=== PATIENT | female | born 1985 | race American Indian/Alaskan Native ===

== ENCOUNTER 2021-08-19 11:07 | Emergency (ER) | payer SELFPAY ==
[2021-08-19] MEDS ORDERED: SODIUM CHLORIDE 0.9% 1000 ML 1,000 ML IV ONE (11:51)
[2021-08-19 13:30] LABS: Basophils % (Auto) 0.8 % (0.0-1.8); Eosinophils # (Auto) 0.1 K/mm3 (0.0-0.4); Eosinophils % (Auto) 1.3 % (0.0-4.3); Hematocrit 33.1 % (30.3-42.9); Hemoglobin 10.8 gm/dl (10.1-14.3); Lymphocytes % (Auto) 35.1 % (13.4-35.0); Mean Corpuscular HGB Conc 33 % (30-34); Mean Corpuscular Volume 86 fl (79-97); Monocytes # (Auto) 0.3 K/mm3 (0.0-0.8); Monocytes % (Auto) 5.6 % (0.0-7.3); Platelet Count 259 K/mm3 (140-440); Red Blood Count 3.87 M/mm3 (3.65-5.03); Red Cell Distribution Width 14.5 % (13.2-15.2)
[2021-08-19 13:40] LABS: Alanine Aminotransferase 7 units/L (7-56); Albumin 3.6 g/dL (3.9-5); Blood Urea Nitrogen 8 mg/dL (7-17); Calcium 8.4 mg/dL (8.4-10.2); Hemolysis Index 3
[2021-08-19 13:44] LABS: BUN/Creatinine Ratio 16; Bilirubin,Direct < 0.2 mg/dL (0-0.2)
--- NOTE | 2021-08-19 13:56 | Ultrasound Report ---
ULTRASOUND OBSTETRIC REASON FOR EXAM: pain TECHNIQUE: Transabdominal and transvaginal ultrasound was performed to evaluate a first trimester pre gnancy. COMPARISON: None available. FINDINGS: FINDINGS: The pole, yolk sac, and gestational sac are normal in appearance. [place]-rump length: 6.4 mm. This corresponds with a gestational age of 6 weeks 3 days. heart rate: 106 bpm Perigestational hemorrhage: No evidence of perigestational hemorrhage on the provided images. MATERNAL FINDINGS: The uterus demonstrates an otherwise unremarkable sonographic appearance. The right ovary is not visualized. The left ovary is not visualize. Cul-de-sac: There is no free fluid. IMPRESSION: Viable intrauterine . Gestational age is 6 weeks 3 days by ultrasound. Recommend clinical sc reening and ultrasound follow-up in the second trimester to screen for anomalies. Borderline bradycardia, measuring 106 bpm. Continued follow-up is recommended. Signer Name: Delano Arce MD Signed: 08/19/2021 1:52 PM Workstation Name: [email or web address]
--- NOTE | 2021-08-19 14:20 | Emergency Department Report ---
ED Abdominal Pain HPI - General Chief Complaint: Abdominal Pain Stated Complaint: 6 WEEKS /ABD PAIN/SOB Time Seen by Provider: 08/19/21 11:48 Source: patient Mode of arrival: Ambulatory Limitations: No Limitations - History of Present Illness MD Complaint: abdominal pain -: Gradual, week(s) Location: suprapubic Radiation: none Severity scale (0 -10): 0 Quality: cramping Consistency: intermittent Improves With: nothing - Related Data Home Medications Medication Instructions Recorded Confirmed Last Taken No Known Home Medications [No 08/19/21 08/19/21 Unknown Reported Home Medications] Allergies Allergy/AdvReac Type Severity Reaction Status Date / Time No Known Allergies Allergy Verified 08/19/21 13:04 ED Review of Systems ROS: Stated complaint: 6 WEEKS /ABD PAIN/SOB Other details as noted in HPI Constitutional: denies: chills, fever Eyes: denies: eye pain, eye discharge, vision change ENT: denies: ear pain, throat pain Respiratory: denies: cough, shortness of breath, wheezing Cardiovascular: denies: chest pain, palpitations Endocrine: no symptoms reported Gastrointestinal: denies: abdominal pain, nausea, diarrhea Genitourinary: denies: urgency, dysuria, discharge Musculoskeletal: denies: back pain, joint swelling, arthralgia Skin: denies: rash, lesions Neurological: denies: headache, weakness, paresthesias Psychiatric: denies: anxiety, depression Hematological/Lymphatic: denies: easy bleeding, easy bruising ED Past Medical Hx - Past Medical History Previous Medical History?: Yes Additional medical history: - Surgical History Past Surgical History?: No - Medications Home Medications: Home Medications Medication Instructions Recorded Confirmed Last Taken Type No Known Home Medications [No 08/19/21 08/19/21 Unknown History Reported Home Medications] ED Physical Exam - General Limitations: No Limitations General appearance: alert, in no apparent distress - Head Head exam: Present: atraumatic, normocephalic - Eye Eye exam: Present: normal appearance - ENT ENT exam: Present: mucous membranes moist - Neck Neck exam: Present: normal inspection - Respiratory Respiratory exam: Present: normal lung sounds bilaterally. Absent: respiratory distress - Cardiovascular Cardiovascular Exam: Present: regular rate, normal rhythm. Absent: systolic murmur, diastolic murmur, rubs, gallop - GI/Abdominal GI/Abdominal exam: Present: soft, normal bowel sounds - Extremities Exam Extremities exam: Present: normal inspection - Back Exam Back exam: Present: normal inspection - Neurological Exam Neurological exam: Present: alert, oriented X3 - Psychiatric Psychiatric exam: Present: normal affect, normal mood - Skin Skin exam: Present: warm, dry, intact, normal color. Absent: rash ED Course Vital Signs 08/19/21 08/19/21 11:38 13:03 Temperature 98.6 F 98.2 F Pulse Rate 77 70 Respiratory 20 16 Rate Blood Pressure 117/70 129/56 [Right] O2 Sat by Pulse 99 99 Oximetry - Reevaluation(s) Reevaluation #1: 08/19/21 14:18 work up neg , vss, US showed 6 weeks 3 days IUP some bradycardia pt informed will follow up with OB ED Medical Decision Making - Lab Data Result diagrams: 08/19/21 12:42 08/19/21 12:42 Critical care attestation.: If time is entered above; I have spent that time in minutes in the direct care of this critically ill patient, excluding procedure time. ED Disposition Clinical Impression: Abdominal pain during intrauterine Disposition: HOME / SELF CARE / HOMELESS Is pt being admited?: No Does the pt Need Aspirin: No Condition: Stable Instructions: Abdominal Pain (ED), Round Ligament Pain, Abdominal Pain During , [id number] Referrals: PRIMARY CARE, [Primary Care Provider] - 3-5 Days
[2021-08-19 14:45] VITALS: BP 109/67
== END 2021-08-19 14:45 | disposition home or self-care (01) ==
LOC: ED 11:07
DX: O26.891 Other specified pregnancy related conditions, first trimester (principal); R10.30 Lower abdominal pain, unspecified; Z3A.01 Less than 8 weeks gestation of pregnancy; Z79.899 Other long term (current) drug therapy
CPT/HCPCS: 36415; 76801; 80048; 80076; 82150; 83690; 84702; 85025; 96360; 96361; 99284; J7030; Q0162

== ENCOUNTER 2021-09-10 07:21 | Emergency (ER) | payer MEDICAID ==
[2021-09-10] MEDS ORDERED: METOCLOPRAMIDE 10 MG/2 ML INJ IV ONE (07:51)
[2021-09-10] MEDS ORDERED: diphenhydrAMINE 50 MG/ML VIAL IV ONE (07:51)
[2021-09-10] MEDS ORDERED: LACTATED RINGERS 1,000 ML IV ONE ×2 (07:51→07:52)
--- NOTE | 2021-09-10 07:58 | Emergency Department Report ---
ED General Adult HPI - General Chief complaint: Nausea/Vomiting/Diarrhea Stated complaint: DIZZINESS/WEAKNESS Time Seen by Provider: 09/10/21 07:29 Source: patient Mode of arrival: Ambulatory Limitations: No Limitations - History of Present Illness Initial comments: 36-year-old -[place] female patient presents with complaints of nausea and vomiting in x2 weeks. Patient states she is approximately 10 weeks and is G5, . She is following with [facility]. She denies any hematemesis/coffee-ground emesis, diarrhea/hematochezia, dysuria/hematuria/urinary frequency, dyspareunia, or vaginal discharge/bleeding. Patient does admit to intermittent left lower pelvic pain. No other past medical history or known drug allergies per patient. Severity scale (0 -10): 7 - Related Data Previous Rx's Medication Instructions Recorded Last Taken Type Promethazine [Phenergan SUPPOS] 25 mg UT Q6HR PRN #20 supp.rect 09/10/21 Unknown Rx Allergies Allergy/AdvReac Type Severity Reaction Status Date / Time No Known Allergies Allergy Verified 08/19/21 13:04 ED Review of Systems ROS: Stated complaint: DIZZINESS/WEAKNESS Other details as noted in HPI Constitutional: denies: chills, fever, malaise Respiratory: denies: cough, shortness of breath Cardiovascular: denies: chest pain Gastrointestinal: as per HPI, abdominal pain, nausea, vomiting Genitourinary: as per HPI Musculoskeletal: denies: back pain Neurological: denies: headache Hematological/Lymphatic: denies: easy bleeding, swollen glands ED Past Medical Hx - Past Medical History Previous Medical History?: No Additional medical history: - Surgical History Past Surgical History?: No - Medications Home Medications: Home Medications Medication Instructions Recorded Confirmed Last Taken Type Promethazine [Phenergan SUPPOS] 25 mg UT Q6HR PRN #20 supp.rect 09/10/21 Unknown Rx ED Physical Exam - General Limitations: No Limitations General appearance: alert, in no apparent distress, obese - Head Head exam: Present: atraumatic, normocephalic - Eye Eye exam: Present: normal appearance - ENT ENT exam: Present: normal exam - Respiratory Respiratory exam: Present: normal lung sounds bilaterally. Absent: respiratory distress - Cardiovascular Cardiovascular Exam: Present: regular rate, normal rhythm - Back Exam Back exam: Present: full ROM - Neurological Exam Neurological exam: Present: alert, oriented X3, normal gait - Psychiatric Psychiatric exam: Present: normal affect, normal mood - Skin Skin exam: Present: warm, dry, intact, normal color. Absent: rash ED Course Vital Signs 09/10/21 07:22 Temperature 98.5 F Pulse Rate 85 Respiratory 18 Rate Blood Pressure 100/60 [Right] O2 Sat by Pulse 100 Oximetry ED Medical Decision Making - Lab Data Result diagrams: 09/10/21 07:55 09/10/21 07:55 - Radiology Data Radiology results: report reviewed Accession Number(s): [id number] cc: SMITH BEJARANO ULTRASOUND OBSTETRIC INDICATION / CLINICAL INFORMATION: left pain. Pelvic pain and cramping during . - Clinical Gestational Age (GA) in weeks, days: 6, 4 TECHNIQUE: Transabdominal. COMPARISON: Ultrasound dated 08/19/21 FINDINGS: GESTATIONAL SAC: Well-defined oval shape and intrauterine in location. YOLK SAC: No significant abnormality. EMBRYO/FETUS: No significant abnormality. - [place]-Rump Length = 2.6 cm = 9, 3 weeks, days - Heart Rate, beats per minute (if present) = 163 ADNEXA: Neither ovary was definitely visualized but no adnexal mass or cyst. FREE FLUID: None. ADDITIONAL FINDINGS: None. IMPRESSION: 1. Single, living intrauterine with estimated sonographic age of 9, 3 weeks, days. - Medical Decision Making 36-year-old -[place] female patient presents with complaints of nausea and vomiting in x2 weeks. Patient states she is approximately 10 weeks and is G5, . She is following with [facility]. She denies any hematemesis/coffee-ground emesis, diarrhea/hematochezia, dysuria/hematuria/urinary frequency, dyspareunia, or vaginal discharge/bleeding. Patient does admit to intermittent left lower pelvic pain. No other past m edical history or known drug allergies per patient. Ultrasound shows 9-week 3-day IUP. Beta-hCG in the 9000s. Critical care attestation.: If time is entered above; I have spent that time in minutes in the direct care of this critically ill patient, excluding procedure time. ED Disposition Clinical Impression: Vomiting Disposition: HOME / SELF CARE / HOMELESS Is pt being admited?: No Condition: Stable Instructions: Hyperemesis Gravidarum Additional Instructions: Please follow-up with your [facility] within 1 to 2 weeks Prescriptions: Promethazine [Phenergan SUPPOS] 25 mg UT Q6HR PRN #20 supp.rect PRN Reason: Nausea Forms: Work/School Release Form(ED)
--- NOTE | 2021-09-10 08:45 | Ultrasound Report ---
ULTRASOUND OBSTETRIC INDICATION / CLINICAL INFORMATION: left pain. Pelvic pain and cramping during . - Clinical Gestational Age (GA) in weeks, days: 6, 4 TECHNIQUE: Transabdominal. COMPARISON: Ultrasound dated 08/19/21 FINDINGS: GESTATIONAL SAC: Well-defined oval shape and intrauterine in location. YOLK SAC: No significant abnormality. EMBRYO/FETUS: No significant abnormality. - [place]-Rump Length = 2.6 cm = 9, 3 weeks, days - Heart Rate, beats per minute (if present) = 163 ADNEXA: Neither ovary was definitely visualized but no adnexal mass or cyst. FREE FLUID: None. ADDITIONAL FINDINGS: None. IMPRESSION: 1. Single, living intrauterine with estimated sonographic age of 9, 3 weeks, days. Signer Name: Ramsey Washington MD Signed: 09/10/2021 8:41 AM Workstation Name: [id number]
[2021-09-10 08:52] LABS: Basophils % (Auto) 0.6 % (0.0-1.8); Eosinophils % (Auto) 0.5 % (0.0-4.3); Hematocrit 33.5 % (30.3-42.9); Hemoglobin 11.1 gm/dl (10.1-14.3); Lymphocytes # (Auto) 1.8 K/mm3 (1.2-5.4); Lymphocytes % (Auto) 29.6 % (13.4-35.0); Mean Corpuscular HGB Conc 33 % (30-34); Mean Corpuscular Volume 84 fl (79-97); Monocytes # (Auto) 0.3 K/mm3 (0.0-0.8); Monocytes % (Auto) 4.4 % (0.0-7.3); Platelet Count 280 K/mm3 (140-440); Red Blood Count 3.97 M/mm3 (3.65-5.03); Red Cell Distribution Width 14.9 % (13.2-15.2)
[2021-09-10 09:12] LABS: Alanine Aminotransferase 7 units/L (7-56); Albumin 3.8 g/dL (3.9-5); Blood Urea Nitrogen 7 mg/dL (7-17); Calcium 9.1 mg/dL (8.4-10.2); Hemolysis Index 8
[2021-09-10 09:29] LABS: BUN/Creatinine Ratio 12
[2021-09-10 09:58] LABS: Bilirubin,Urine NEG (Negative); Blood,Urine NEG (Negative); Color,Urine Yellow (Yellow); Protein,Urine <15 mg/dL mg/dL (Negative); Urobilinogen,Urine < 2.0 mg/dL (<2.0)
[2021-09-10] MEDS ORDERED: SODIUM CHLORIDE 0.9% 1000 ML 1,000 ML IV ONE (10:03)
[2021-09-10 11:49] VITALS: BP 94/61
== END 2021-09-10 11:50 | disposition home or self-care (01) ==
LOC: ED 07:21
DX: O21.9 Vomiting of pregnancy, unspecified (principal); Z3A.10 10 weeks gestation of pregnancy
CPT/HCPCS: 36415; 76801; 80053; 81001; 84702; 85025; 96361; 96374; 96375; 99284; J1200; J2765; J7120

== ENCOUNTER 2022-01-28 10:42 | Outpatient (CLI) | payer MEDICAID ==
[2022-01-28] MEDS ORDERED: LACTATED RINGERS 1,000 ML IV ONE ×2 (11:46→13:07)
[2022-01-28 15:05] LABS: Basophils % (Auto) 0.4 % (0.0-1.8); Eosinophils % (Auto) 0.4 % (0.0-4.3); Hematocrit 26.1 % (30.3-42.9); Hemoglobin 8.6 gm/dl (10.1-14.3); Lymphocytes # (Auto) 1.5 K/mm3 (1.2-5.4); Lymphocytes % (Auto) 19.4 % (13.4-35.0); Mean Corpuscular HGB Conc 33 % (30-34); Mean Corpuscular Volume 84 fl (79-97); Monocytes # (Auto) 0.4 K/mm3 (0.0-0.8); Monocytes % (Auto) 4.5 % (0.0-7.3); Platelet Count 260 K/mm3 (140-440); Red Blood Count 3.13 M/mm3 (3.65-5.03); Red Cell Distribution Width 14.7 % (13.2-15.2)
[2022-01-28 16:11] VITALS: BP 101/66
== END 2022-01-28 16:16 | disposition home or self-care (01) ==
LOC: TRG 10:42 → LD 10:44 → TRG 16:16
PROVIDERS: ATTEND Obstetrics & Gynecology
DX: O26.893 Other specified pregnancy related conditions, third trimester (principal); M54.50 Low back pain, unspecified; R42 Dizziness and giddiness; R10.2 Pelvic and perineal pain; Z3A.30 30 weeks gestation of pregnancy
CPT/HCPCS: 36415; 85025; 96360; J7120

== ENCOUNTER 2022-03-12 16:31 | Outpatient (CLI) | payer MEDICAID ==
[2022-03-12] MEDS ORDERED: LACTATED RINGERS 1,000 ML IV ONE (18:45)
[2022-03-12 18:50] LABS: Creatinine,Urine 306.7 mg/dL (0.1-20.0); Protein/Creatinine Ratio,Urine 0.22
[2022-03-12 18:59] LABS: Bacteria,Urine 2+ /HPF (Negative); Mucus,Urine 2+ /HPF
[2022-03-12 19:07] LABS: Hematocrit 29.6 % (30.3-42.9); Hemoglobin 9.4 gm/dl (10.1-14.3); Mean Corpuscular HGB Conc 32 % (30-34); Mean Corpuscular Volume 81 fl (79-97); Platelet Count 270 K/mm3 (140-440); Red Blood Count 3.67 M/mm3 (3.65-5.03); Red Cell Distribution Width 16.5 % (13.2-15.2)
[2022-03-12 19:27] LABS: Bilirubin,Urine Negative (Negative); Blood,Urine Negative (Negative); Color,Urine Yellow (Yellow); Urobilinogen,Urine < 2.0 mg/dL (<2.0)
[2022-03-12 19:55] LABS: Alanine Aminotransferase 7 units/L (7-56); Uric Acid 4.5 mg/dL (3.5-7.6)
[2022-03-12] MEDS ORDERED: D5W/0.9% NACL 1,000 ML IV SCH (22:00)
[2022-03-12 23:37] VITALS: BP 105/67
--- NOTE | 2022-03-13 00:09 | Ultrasound Report ---
ULTRASOUND OBSTETRIC LIMITED INDICATION / CLINICAL INFORMATION: EFW, LIZ. Clinical Gestational Age (GA) in weeks, days: 36 weeks 0 days TECHNIQUE: Transabdominal. COMPARISON: None available. FINDINGS: Single live intrauterine in cephalic presentation with heart rate of 131 bpm. MEASUREMENTS: - Biparietal Diameter = 8.2 cm = 33 weeks 1 day - Head Circumference = 31.4 cm = 35 weeks 1 day - Abdominal Circumference = 28.8 cm = 32 weeks 5 days - Femur Length = 7.4 cm = 37 weeks 4 days - Estimated Weight (in grams, if calculated): 2440 Ultrasound gestational age: 34 weeks 5 days. Amniotic fluid index measures 12.5 cm, within normal limits. IMPRESSION: 1. Single live intrauterine with ultrasound age of 34 weeks and 5 days. No significant abno rmality. 2. Estimated weight of 2440 g. 3. Amniotic fluid index is within normal limits, measuring 12.5 cm. Signer Name: Delano Arce MD Signed: 03/13/2022 12:05 AM Workstation Name: [id number]
== END 2022-03-13 00:08 | disposition home or self-care (01) ==
LOC: TRG 16:31 → APU 16:33 → TRG 03-13 00:08
PROVIDERS: ATTEND Obstetrics & Gynecology
DX: O26.893 Other specified pregnancy related conditions, third trimester (principal); R51.9 Headache, unspecified; H53.8 Other visual disturbances; R42 Dizziness and giddiness; Z3A.35 35 weeks gestation of pregnancy
CPT/HCPCS: 36415; 76816; 81001; 82565; 82570; 82962; 83615; 84156; 84450; 84460; 84550; 85027; 96360; 96361; J7042; J3490

== ENCOUNTER 2022-04-05 11:10 | Inpatient (IN) | payer MEDICAID ==
[2022-04-05] MEDS ORDERED: OXYTOCIN 10 UNIT/1 ML INJ IM PRN (12:44)
[2022-04-05] MEDS ORDERED: TERBUTALINE 1 MG/1 ML INJ SUB-Q PRN (12:44)
[2022-04-05] MEDS ORDERED: ePHEDrine SULFATE 50 MG/1 ML INJ IV PRN (12:44)
[2022-04-05] MEDS ORDERED: LOPERAMIDE 2 MG CAP PO PRN (12:44)
[2022-04-05] MEDS ORDERED: miSOPROStol 200 MCG TAB PR PRN (12:44)
[2022-04-05] MEDS ORDERED: ONDANSETRON 4 MG/2 ML INJ IV PRN ×3 (12:44→16:39)
[2022-04-05] MEDS ORDERED: LIDOCAINE (2%) 20 MG/1 ML VIAL 20 ML MDV INFILTRATI ONE (12:44)
[2022-04-05] MEDS ORDERED: BUTORPHANOL 2 MG/1 ML INJ IV PRN (12:44)
[2022-04-05] MEDS ORDERED: fentaNYL 100 MCG/2 ML INJ IV PRN (12:44)
[2022-04-05] MEDS ORDERED: MINERAL OIL 30 ML ORAL LIQD PO PRN (12:44)
[2022-04-05] MEDS ORDERED: ACETAMINOPHEN 325 MG TAB PO PRN ×2 (12:44→16:17)
[2022-04-05] MEDS ORDERED: METHYLERGONOVINE MALEATE 0.2 MG/ML VIAL IM PRN (12:44)
[2022-04-05] MEDS ORDERED: CARBOPROST TROMETHAMINE 250 MCG/1 ML INJ IM PRN (12:44)
[2022-04-05] MEDS ORDERED: LACTATED RINGERS 1,000 ML IV SCH ×3 (12:45→19:45)
[2022-04-05] MEDS ORDERED: FAMOTIDINE 20 MG/2 ML INJ IV ONE (12:55)
[2022-04-05] MEDS ORDERED: METOCLOPRAMIDE 10 MG/2 ML INJ IV ONE (12:55)
[2022-04-05] MEDS ORDERED: BICITRA ORAL LIQD 30ML PO ONE (12:55)
[2022-04-05] MEDS ORDERED: OXYTOCIN DRIP 30 UNITS/500 ML BAG IV SCH ×3 (13:00→17:00)
[2022-04-05] MEDS ORDERED: ceFAZolin/Water 2 GM/20 ML 2 GM/20 ML SYRINGE IV NR (13:00)
[2022-04-05 13:30] LABS: Hematocrit 30.6 % (30.3-42.9); Hemoglobin 9.8 gm/dl (10.1-14.3); Mean Corpuscular HGB Conc 32 % (30-34); Mean Corpuscular Volume 79 fl (79-97); Platelet Count 341 K/mm3 (140-440); Red Blood Count 3.89 M/mm3 (3.65-5.03); Red Cell Distribution Width 16.4 % (13.2-15.2)
[2022-04-05] MEDS ORDERED: BUPIVACAINE/PF (0.5%) 5 MG/1 ML 30 ML VIAL INFILTRATI ONE (13:59)
[2022-04-05] MEDS ORDERED: ePHEDrine SULFATE 50 MG/1 ML INJ ONE (13:59)
[2022-04-05] MEDS ORDERED: ONDANSETRON 4 MG/2 ML INJ ONE (13:59)
--- NOTE | 2022-04-05 14:00 | History and Physical Report ---
History of Present Illness Date of examination: 04/05/22 Date of admission: 04/05/22 12:45 Chief complaint: Non reassuring heart tracing at 39+1 wks. History of present illness: 39+1 wks. by cesareans. Past History Past Medical History: no pertinent history Past Surgical History: no surgical history, section - Obstetrical History Expected Date of Delivery: 04/10/22 Actual Gestation: 39 Week(s) 2 Day(s) : 5 Para: 2 Medications and Allergies Allergies Allergy/AdvReac Type Severity Reaction Status Date / Time diphenhydramine AdvReac Severe Anaphylaxis Verified 03/12/22 17:38 [From Benadryl] Home Medications Medication Instructions Recorded Confirmed Last Taken Type Promethazine [Phenergan SUPPOS] 25 mg MN Q6HR PRN #20 supp.rect 09/10/21 01/28/22 Unknown Rx Active Meds: Active Medications Acetaminophen (Acetaminophen 325 Mg Tab) 650 mg PO Q4H PRN PRN Reason: Pain, Mild (1-3) Butorphanol Tartrate (Butorphanol 2 Mg/1 Ml Inj) 1 mg IV Q2H PRN PRN Reason: Pain, Moderate(4-6) LABOR PAIN Carboprost Tromethamine (Carboprost Tromethamine 250 Mcg/1 Ml Inj) 250 mcg IM ONCE PRN PRN Reason: Uterine Bleeding Ephedrine Sulfate (Ephedrine Sulfate 50 Mg/1 Ml Inj) 10 mg IV Q2M PRN PRN Reason: Hypotension Fentanyl (Fentanyl 100 Mcg/2 Ml Inj) 100 mcg IV Q2H PRN PRN Reason: Pain,Severe (7-10) LABOR PAIN Lactated Ringer's (Lactated Ringers) 1,000 mls @ 125 mls/hr IV DIRECT MARBELLA Oxytocin/Sodium Chloride (Pitocin/Ns 30 Unit/500ml) 30 units in 500 mls @ 40 mls/hr IV TITR MARBELLA; Protocol Lactated Ringer's (Lactated Ringers) 1,000 mls @ 2,250 mls/hr IV PREOP MARBELLA Stop: 04/06/22 13:27 Oxytocin/Sodium Chloride (Pitocin/Ns 30 Unit/500ml) 30 units in 500 mls @ 0 mls/hr IV TITR MARBELLA; Protocol Cefazolin Sodium (Ancef/Sterile Water 2 Gm/20 Ml) 2 gm in 20 mls @ 80 mls/hr IV PREOP NR; Protocol Stop: 04/05/22 23:59 Loperamide HCl (Loperamide 2 Mg Cap) 2 mg PO ONCE PRN PRN Reason: give with Hemabate Methylergonovine Maleate (Methylergonovine Maleate 0.2 Mg/Ml Vial) 0.2 mg IM ONCE PRN PRN Reason: Uterine Bleeding Mineral Oil (Mineral Oil 30 Ml Oral Liqd) 30 ml PO QHS PRN PRN Reason: Constipation Misoprostol (Misoprostol 200 Mcg Tab) 800 mcg MN ONCE PRN PRN Reason: Uterine Bleeding Ondansetron HCl (Ondansetron 4 Mg/2 Ml Inj) 4 mg IV Q8H PRN PRN Reason: Nausea And Vomiting Oxytocin (Oxytocin 10 Unit/1 Ml Inj) 10 unit IM ONCE PRN PRN Reason: Uterine Bleeding Terbutaline Sulfate (Terbutaline 1 Mg/1 Ml Inj) 0.25 mg SUB-Q ONCE PRN PRN Reason: Hyperstimulation/Hypertonicity - Vital Signs Vital signs: Vital Signs Pulse Pulse Ox 124 H 99 04/05/22 11:34 04/05/22 11:34 Temp Pulse Resp BP Pulse Ox 82 123/72 98 04/05/22 13:53 04/05/22 11:35 04/05/22 13:53 - Physical Exam Lungs: Positive: Normal air movement Abdomen: Positive: normal appearance, distention, normal bowel sounds Uterus: Positive: enlarged, normal contour - Obstetrical FHR: auscultation normal, category 2 Results Result Diagrams: 04/05/22 13:04 Abnormal lab results 04/05/22 Range/Units 13:04 Hgb 9.8 L (10.1-14.3) gm/dl MCH 25 L (28-32) pg RDW 16.4 H (13.2-15.2) % All other labs normal. Assessment and Plan - Patient Problems (1) Non-reassuring cardiotocographic tracing Current Visit: Yes Status: Acute (2) 39 weeks gestation of Current Visit: Yes Status: Acute (3) Previous delivery affecting Current Visit: Yes Status: Acute Plan to address problem: for repeat c/s katheryn.
[2022-04-05] MEDS ORDERED: PHENYLEPHRINE/NS 1,000 MCG/10 ML SYRINGE (OR USE) IV ONE (15:43)
[2022-04-05] MEDS ORDERED: KETOROLAC 30 MG/1 ML INJ IV PRN (16:17)
[2022-04-05] MEDS ORDERED: PROMETHAZINE 25 MG RECT SUPP PR PRN ×2 (16:17→16:39)
[2022-04-05] MEDS ORDERED: IBUPROFEN 600 MG TAB PO PRN (16:17)
[2022-04-05] MEDS ORDERED: MORPHINE 4 MG/1 ML INJ IV PRN ×2 (16:17→16:39)
[2022-04-05] MEDS ORDERED: WITCH HAZEL/ GLYCERIN PAD TP PRN (16:17)
[2022-04-05] MEDS ORDERED: MORPHINE 2 MG/1 ML INJ IV PRN (16:17)
[2022-04-05] MEDS ORDERED: NALOXONE 0.4 MG/1 ML INJ IV PRN ×2 (16:17→16:39)
[2022-04-05] MEDS ORDERED: HYDROcodone/ACETAMINOPHEN 5-325 MG TAB PO PRN (16:17)
[2022-04-05] MEDS ORDERED: SIMETHICONE 80 MG CHEW TAB PO PRN (16:17)
[2022-04-05] MEDS ORDERED: SENNOSIDES 8.6 MG TAB PO PRN (16:17)
[2022-04-05] MEDS ORDERED: LANOLIN/ZINC/DIMETHICONE (LANSINOH) 7 GM TP PRN (16:17)
[2022-04-05] MEDS ORDERED: MAGNESIUM HYDROXIDE (MOM) ORAL LIQD UDC PO PRN (16:17)
--- NOTE | 2022-04-05 16:27 | Operative Report ---
Operative Report Operative Report: Date of surgery: April 05, 2022 Preoperative diagnoses: 39 weeks 2 days gestation, 2 previous C-sections, nonreassuring heart tracing Postoperative diagnoses: The same. Plus peritoneal adhesions Operation: Lower segment transverse delivery, lysis of adhesion Surgeon:Paco Ibarra MD Slubber Frame Changer: Donta Cuevas CRNA Anesthesia: Spinal block Estimated blood loss: 200 mL Complications: None Findings: Live baby girl, vertex, Apgars 8/9. The ovaries, fallopian tubes and the uterus were all grossly normal. The inferior aspect of the greater omentum was adherent to the midline just inferior to the umbilicus. Procedure in detail: The patient was taken to the operating room and given a spinal block. Patient was placed in the straight supine position and a Shah catheter was inserted. The patient was prepped in the abdomen. The drapes were placed. A timeout was done. With the go ahead from the heavy equipment field mechanic, a Pfannenstiel incision was made. This incision was carried across the subcutaneous layer to the fascia which was also divided transversely. The recti abdominis muscle flaps were stripped from the fascia using a combination of blunt and sharp dissections. The muscles were in the midline to gain access to the anterior parietal peritoneum which was divided after excluding any underlying viscera. The access to the peritoneal cavity was then widened by manual stretching. The bladder blade was applied. The utero vesicle peritoneal flap was divided transversely allowing the bladder to be displaced caudally. The uterine incision was placed in the lower segment transversely. The uterine incision was carried to the decidual layer. The uterine incision was extended on both sides using the bandage scissors. The amniotic sac was ruptured with clear fluid. The head was lifted out of the false maternal pelvis and delivered through the incision using fundal pressure combined with traction using the Kiwi. The airways were bulb suctioned beginning with the mouth. Continuing fundal pressure combined with traction on the mandibular processes of the jaw delivered the rest of the baby. The umbilical cord was double clamped and divided. The baby was carefully transferred to the pediatric team. The placenta was manually removed from the uterine cavity. The uterine cavity was explored and was empty of any placental remnants. The uterine incision was repaired in 2 layers with #1 Vicryl. The surgical line on the uterus was hemos tatic. The band of omentum was divided in between 2 pairs of Kellys and tied off with #1 Vicryl. Hemostasis was excellent Blood and clots were cleared from the peritoneal cavity. The anterior parietal peritoneum was repaired with #1 Vicryl. The fascia was repaired with #1 Vicryl. The subcutaneous layer was made hemostatic using the Bovie before the skin was closed subcuticularly with 4-0 Vicryl. There were no complications. The estimated blood loss was 200 mL. All sponges and instrument counts were correct. Patient was safely transferred to the recovery room.
[2022-04-05] MEDS ORDERED: PROMETHAZINE 25 MG TAB PO PRN (16:39)
[2022-04-05] MEDS ORDERED: HYDROmorphone 1 MG/1 ML INJ IV PRN ×2 (16:39)
--- NOTE | 2022-04-05 16:41 | Anesthesia Day of Surgery ---
Anesthesia Day of Surgery - Day of Surgery Patient Examined: Yes Patient H&P Reviewed: Yes Patient is NPO: Yes Beta Blockers: No Cardiac Clearance: No Pulmonary Clearance: No Quincy's Test: N/A
--- NOTE | 2022-04-05 16:41 | Anesthesia Consultation ---
Anesthesia Consult and Med Hx Date of service: 04/05/22 - Airway Anesthetic Teeth Evaluation: Good ROM Head & Neck: Adequate Mental/Hyoid Distance: Adequate Mallampati Class: Class II Intubation Access Assessment: Probably Good - Pulmonary Exam CTA: Yes - Cardiac Exam Cardiac Exam: RRR - Pre-Operative Health Status ASA Pre-Surgery Classification: ASA2 Proposed Anesthetic Plan: Spinal Nerve Block: Valdo Tap - Pulmonary Hx Smoking: No Hx Asthma: No Hx Respiratory Symptoms: No SOB: No COPD: No Home Oxygen Therapy: No Hx Pneumonia: No Hx Sleep Apnea: No - Cardiovascular System Hx Hypertension: No Hx Coronary Artery Disease: No Hx Heart Attack/AMI: No Hx Angina: No Hx Percutaneous Transluminal Coronary Angioplasty (PTCA): No Hx Cardia Arrhythmia: No Hx Pacemaker: No Hx Internal Defibrillator: No Hx Valvular Heart Disease: No Hx Heart Murmur: No Hx Peripheral Vascular Disease: No - Central Nervous System Hx Neuromuscular Disorder: No Hx Seizures: No CVA: No Hx Psychiatric Problems: No - Gastrointestinal Hx Ulcer: No Hx Gastroesophageal Reflux Disease: No - Endocrine Hx Renal Disease: No Hx End Stage Renal Disease: No Hx Cirrhosis: No Hx Liver Disease: No Hx Insulin Dependent Diabetes: No Hx Non-Insulin Dependent Diabetes: No Hx Thyroid Disease: No Hx Hypothyroidism: No Hx Hyperthyroidism: No - Hematic Hx Anemia: Yes Hx Sickle Cell Disease: No - Other Systems Hx Alcohol Use: No Hx Substance Use: No Hx Cancer: No Hx Obesity: Yes
--- NOTE | 2022-04-05 16:42 | Progress Note ---
Spinal Anesthesia Block - Spinal Anesthesia Block Start Time: 14:20 Stop Time: 14:32 Performed by:: JESSICA BURNS Procedure: The patient was placed in a sitting position on the OR table and monitors applied. A timeout was performed immediately prior to the start of the procedure. The patient was Prepped and draped in a sterile fashion and the skin was localized with 3 mL 1% lidocaine at L[4]-L[5] interspace. An introducer was placed into the back between L4-L5 and a 25g spinal needle was advanced into the intrathecal space until clear, free flowing CSF was observed. 1.8cc of 0.75% hyperbaric bupivacaine + 0.5mcg Precedex was injected into the intrathecal space and the spinal needle was removed. The patient tolerated the procedure well and there were no immediate complications noted.
--- NOTE | 2022-04-05 16:43 | Progress Note ---
Regional Anesthesia Block - Regional Anesthesia Block Start Time: 16:20 Stop Time: 16:24 Performed By:: JESSICA BURNS Procedure: During the pre-op interview the patient agreed to and signed a consent for a TAP block for post surgical pain management. After her C/S was completed a time out was performed prior to the start of the procedure. The Trans Abdominal Plane was identified bilaterally via ultrasound. The skin was prepped bilaterally with chlorhexidine and a 22g stimuplex needle was advanced to the area between the internal oblique muscle and the trans abdominal plane. Marcaine 0.25% 30mlwas injected under ultrasound guidance on the left and right side. Negative aspiration every 5mL, There was no change in the patients heart rate or rhythm and the patient tolerated the procedure well. No apparent complications were observed.
[2022-04-05] MEDS ORDERED: fentaNYL-BUPIV 2 MCG/ML-0.125% 200 MCG/100 ML BAG EPIDURAL SCH (17:00)
[2022-04-05] MEDS: KETOROLAC 30 MG/1 ML INJ IV PRN (23:23)
[2022-04-06] MEDS: KETOROLAC 30 MG/1 ML INJ IV PRN (06:01)
[2022-04-06 06:28] LABS: Hematocrit 28.5 % (30.3-42.9); Hemoglobin 9.1 gm/dl (10.1-14.3)
--- NOTE | 2022-04-06 07:24 | Post Anesthesia Evaluation ---
- Post Anesthesia Evaluation Patient Participated: Yes Airway Patent: Yes Stable Respiratory Function: Yes Nausea/Vomiting: No Temp > 96.8F: Yes Pain Manageable: Yes Adequeate Hydration: Yes Anesthesia Complications: No Block Receding Appropriately: Yes Patient on Ventilator: No
[2022-04-06] MEDS: PRENATAL VIT27-FE FUMARATE-FOLIC ACID VIT TAB PO SCH (10:37)
[2022-04-06] MEDS: IBUPROFEN 800 MG TAB PO PRN (21:39)
[2022-04-07] MEDS: IBUPROFEN 800 MG TAB PO PRN ×3 (06:47→23:17)
[2022-04-07] MEDS: PRENATAL VIT27-FE FUMARATE-FOLIC ACID VIT TAB PO SCH (09:40)
[2022-04-08 08:47] VITALS: BP 117/67
[2022-04-08] MEDS: IBUPROFEN 800 MG TAB PO PRN (09:22)
[2022-04-08] MEDS: PRENATAL VIT27-FE FUMARATE-FOLIC ACID VIT TAB PO SCH (10:06)
--- NOTE | 2022-04-08 14:07 | Discharge Summary ---
Providers - Providers Date of Admission: 04/05/22 12:45 Date of discharge: 04/08/22 Attending physician: BIJU LOUISE MD Primary care physician: BIJU LOUISE MD Hospitalization Reason for admission: other (NRFHT, non reactive NST) Delivery: Procedure: section Episiotomy: none Laceration: none Incision: normal, dry, intact Other procedures: none complications: none Discharge diagnosis: IUP at term delivered baby: female Condition at discharge: Good Disposition: 01 HOME / SELF CARE / HOMELESS Plan - Discharge Medications Prescriptions: Ibuprofen [Motrin 800 MG tab] 800 mg PO Q8HR PRN #30 tablet PRN Reason: Pain, Moderate (4-6) - Provider Discharge Summary Activity: no sex for 6 weeks, no heavy lifting 4 weeks, no strenuous exercise Diet: routine Instructions: routine Additional instructions: [] Smoking cessation referral if applicable(refer to patient education folder for contact #) [] Refer to [facility] Booklet Call your doctor immediately for: * Fever > 100.5 * Heavy vaginal bleeding ( >1 pad per hour) * Severe persistent headache * Shortness of breath * Reddened, hot, painful area to leg or breast * Drainage or odor from incision. * Keep incision clean and dry at all times and follow doctor's instructions regarding bathing/showering - Follow up plan Follow up: BIJU LOUISE MD [Primary Care Provider] - 10 Days ([facility]) Forms: [facility] Discharge Summary
[2022-04-08] MEDS ORDERED: medroxyPROGESTERone ACETATE 150 MG/ML SYRINGE IM ONE (15:00)
== END 2022-04-08 15:00 | disposition home or self-care (01) | DRG 766 ==
LOC: TRG 11:10 → APU 11:11 → TRG 12:45 → APU 14:08 → OB 17:55
PROVIDERS: ADMIT Obstetrics & Gynecology; ATTEND Obstetrics & Gynecology
PROC: 10D00Z1 Extraction of Products of Conception, Low, Open Approach (ICD-10-PCS; principal; 2022-04-05)
PROC: 3E0T3BZ Introduction of Anesthetic Agent into Peripheral Nerves and Plexi, Percutaneous Approach (ICD-10-PCS; 2022-04-05)
DX: O76 Abnormality in fetal heart rate and rhythm complicating labor and delivery (principal); O34.211 Maternal care for low transverse scar from previous cesarean delivery; Z20.822 Contact with and (suspected) exposure to COVID-19; Z3A.39 39 weeks gestation of pregnancy; Z37.0 Single live birth; O99.62 Diseases of the digestive system complicating childbirth; K66.0 Peritoneal adhesions (postprocedural) (postinfection); Z88.8 Allergy status to other drugs, medicaments and biological substances
CPT/HCPCS: 36415; 85014; 85018; 85027; 86850; 86900; 86901; 88307; G0378; J3490; J1050; J1885; J2370; J2405; J2765; J7120; U0003